=== PATIENT | female | born 1980 | race Hispanic/Latino ===

== ENCOUNTER 2016-06-19 09:32 | Emergency (ER) | payer OTHER ==
[~2016-06-19] VITALS: Ht 162.6 cm; Wt 70.9 kg
[2016-06-19 09:50] VITALS: BP 118/78; PULSE 93; RESP 16; O2SAT 99
[2016-06-19 10:56] VITALS: BP 142/95; PULSE 74; RESP 14; O2SAT 96
[2016-06-19 10:57] LABS: BASOPHILS % (AUTO) 0.4 % (0-3); MONOCYTES % (AUTO) 9.6 % (4-12); Mean Corpuscular Hemoglobin 32.4 pg (27.0-35.0); Mean Corpuscular Volume 93.9 fL (81-100); NEUTROPHILS % (AUTO) 49.5 % (40-74); Platelet Count 207 bil/L (150-400)
[2016-06-19] MEDS ORDERED: 0.9% Sodium Chloride 1,000 ML IV ONE (11:00)
[2016-06-19 11:18] LABS: Magnesium 1.9 mg/dL (1.6-2.6)
[2016-06-19] MEDS ORDERED: Ondansetron 2 mg/mL 2 mL Inj IVPUSH ONE (11:35)
[2016-06-19 11:49] LABS: APPEARANCE,URINE HAZY (CLEAR,HAZY); COLOR,URINE STRAW (YELLOW); OCCULT BLOOD,URINE NEGATIVE (NEGATIVE); PH,URINE 5.5 (5.0-8.0); UROBILINOGEN,URINE NORMAL (NORMAL)
--- NOTE | 2016-06-19 11:52 | ED.REPORT ---
HPI-Abd Pain F Under 39 Date of Service Jun 19, 2016 ED Provider: Marry Huynh MD History of Present Illness: Patient is a 36 y.o. F with past medical history of GERD, hystretomy done for heavy periods and fibroids. She presents to the ED with one day history of sudden onset of sharp right lower quadrant pain . Pain is described as sharp, constant. Both lower right quadrant painmade worse with urination and movement, Associated with painful urination and back pain that began early today. Denies fever, chils, nausea, vomiting, diarrhea, urination, hematuria, constipation. No history of STD/STI. Patient has had multiple episodes of similar pain in the past, last episode approximately one year ago, under similar circumstances without provocation. Patients stated that there has been correlation to pain with menstural cycle. Nursing Notes Stated Complaint: PAIN IN PELVIC AREA Chief Complaint: Female Abdominal Pain Allergies: Coded Allergies: codeine (Verified Adverse Reaction, Severe, Nausea, 06/19/16) ibuprofen (Verified Adverse Reaction, Severe, Nausea, 06/19/16) oxycodone (Verified Adverse Reaction, Severe, Nausea, 06/19/16) tramadol (Verified Adverse Reaction, Severe, Nausea, 06/19/16) Scheduled PRN Metoclopramide (Reglan) 5 Mg Tablet 5 MG PO QID PRN PRN For Nausea Naproxen (Naprosyn) 500 Mg Tablet 500 MG PO BID PRN PRN For Pain oxyCODONE-Acetaminophen 5-325 mg (oxyCODONE-Acetaminophen 5-325 mg) 1 Each Tablet 1 TAB PO Q6H PRN PRN For Pain General Time Seen by MD: 11:20 Chief Complaint Abdominal pain Hx Obtained From: Patient Arrived By: Walk-in Sudden in Onset?: Yes Onset Occurred: Yesterday Symptom Duration: Constant Location: : Back: Lower-adnexal region R: RLQ Quality: Sharp Radiation: : Does not radiate Severity: Current: Pain level 8 out of 10 Severity: Maximum: Pain level 8 out of 10 Recent Healthcare: No recent doctor visit Similar Sx Previous: Yes (noted in HPI) Past Medical History Past Medical History GERD Uterine Fibroids Gallstone Past Surgical History Reports: Cholecystectomy, Hysterectomy Smoking History Never Smoker Social History Alcohol Use: Denies alcohol use Drug Use: THC Ambulatory Status Independent Review of Systems Basic Review of Systems Eyes: Vision NL, No discharge ENT: Hearing NL, No pain, No nasal congestion, No pharyngeal pain Hematologic: No bleeding, No bruising Skin: No bruising, No rash, No itch Neurologic: NL mental status, No weakness, No numbness Complete sys rev & neg: except as marked. Physical Exam Initial Vital Signs Vital Signs (First) Date Time Temp Pulse Resp B/P Pulse Ox O2 Delivery O2 Flow Rate FiO2 06/19/16 09:50 37.2 93 16 118/78 99 06/19/16 10:56 Room Air Head / Eyes: Atraumatic, Normocephalic, PERRL ENT: Mucous membranes moist, Conjunctiva normal, No scleral icterus Neck: Supple, Non-tender, Full range of motion Extremities: Vascular intact, Neuro intact, No swelling, No tenderness Skin: Warm, Dry, No cyanosis Neurologic: Alert, Oriented, Nonfocal Psychiatric: Mood/affect normal, Behavior normal, Normal thought content Abdomen: No guarding, No rebound, BS normoactive, No distention Tenderness/Guarding/Rebound: Positive: Tender RLQ... (Mild) Organomegaly / Mass / Hernia: Negative: Hepatomegaly, Mass present, Pulsatile mass, Splenomegaly Trauma - General: Negative: Abrasion Trauma - Abdomen Specific: Negative: Campos's sign, Bear Link's sign Interpretation & Diagnostics Lab Results Interpretation Result Diagram: 06/19/16 1040 06/19/16 1040 Test 06/19/16 10:00 06/19/16 10:40 06/19/16 11:30 Hold Purple Top Tube Received (Received) Hold Blue Top Tube Received (Received) Hold Letha Top Tube Received (Received) White Blood Count 5.3th/mm3 (3.8-10.1) Red Blood Count 4.44mil/mm3 (3.90-5.20) Hemoglobin 14.4g/dL (12.0-15.6) Hematocrit 41.7% (35.0-46.0) Mean Corpuscular Volume 93.9fL (81-100) Mean Corpuscular Hemoglobin 32.4pg (27.0-35.0) Mean Corpuscular Hemoglobin Concent 34.5% (32.0-37.0) Red Cell Distribution Width 12.5% (12.3-15.4) Platelet Count 207bil/L (150-400) Neutrophils (%) (Auto) 49.5% (40-74) Lymphocytes (%) (Auto) 37.5% (14-46) Monocytes (%) (Auto) 9.6% (4-12) Eosinophils (%) (Auto) 3.0% (0-5) Basophils (%) (Auto) 0.4% (0-3) Sodium Level 138mEq/L (134-144) Potassium Level 4.5mEq/L (3.5-5.2) Chloride Level 104mEq/L (97-108) Carbon Dioxide Level 22mmol/L (18-29) Blood Urea Nitrogen 11mg/dL (6-20) Creatinine 0.62mg/dL (0.57-1.00) Estimat Glomerular Filtration Rate 155mL/min (>59) Glucose Level 101mg/dL (60-99) Calcium Level 8.9mg/dL (8.5-10.1) Magnesium Level 1.9mg/dL (1.6-2.6) Total Bilirubin 0.2mg/dL (0.0-1.2) Aspartate Amino Transf (AST/SGOT) 15U/L (0-50) Alanine Aminotransferase (ALT/SGPT) 12U/L (0-32) Alkaline Phosphatase 88U/L (25-150) Total Protein 6.8g/dL (6.4-8.4) Albumin 4.2g/dL (3.4-5.0) Lipase 30U/L (13-60) Hold Bear Top Tube Received (Received) Urine Color Straw (YELLOW) Urine Appearance Hazy (CLEAR,HAZY) Urine pH 5.5 (5.0-8.0) Urine Specific [place] 1.025 (1.003-1.035) Urine Protein Negativemg/dL (NEG,TRACE) Urine Glucose (UA) Negativemg/dL (NEGATIVE) Urine Ketones Negativemg/dL (NEGATIVE) Urine Occult Blood Negative (NEGATIVE) Urine Nitrite Negative (NEGATIVE) Urine Bilirubin Negative (NEGATIVE) Urine Urobilinogen Normalmg/dL (NORMAL) Urine Leukocyte Esterase Negative (NEGATIVE) Urine RBC 0-2/hpf (0-2) Urine WBC 0-5/hpf (0-5) Urine Epithelial Cells Moderate/hpf (NONE-MOD) Urine Crystals None seen (NONE SEEN) Urine Bacteria Moderate/hpf (NONE-FEW) Urine Hyaline Casts None/lpf (NONE) Urine Granular Casts None seen (NONE SEEN) Urine Waxy Casts None seen (NONE SEEN) Urine Red Blood Cell Casts None seen (NONE SEEN) Urine White Blood Cell Casts None seen (NONE SEEN) Urine Mucus Present (None Seen) Urine Trichomonas None seen (NONE SEEN) Urine Yeast None (NONE SEEN) Urinalysis Comment None Urine Culture Reflexed Indicated Re-Eval/Medical Decision Med Decision/Clinical Course Med Decision/Clinical Course: Patient is a 36 y.o. F with past medical history of GERD, hystretomy done for heavy periods and fibroids. She presents to the ED with one day history of sudden onset of sharp right lower quadrant pain and new onset right sided back pain that began this morning. DDx interstitial cystitis, interstitial nephritis, kidney stone, endometritis, pancreatitis. CBC ordered, negative for signs of acute infection CMP ordered, no sign of acute kidney injury, LFT normal Lipase ordered, normal IVF NS saline 1 L bolus ordered 30 mg Ketorlac IV given 4 mg IV Zofran ordered Patient will matt need close outpatient follow up to r/o interstitial cystitis Discharge & Departure Departure Notes During you visit to [facility] Emergency Department we obtained urine and blood work for infectious markers, hemoglobin levels, and electrolytes. All your lab values were within normal limits and your imaging showed no acute processes or abnormalities, no source of acute infection was noted in your urine sample. We will send your urine for culture to determine if there is any infection that was not caught on initial screening. Your vital signs were stable and safe for discharge. We will send you home with - Pain medications: Percocet 5-325 mg take by mouth every 6 hours for pain, Naprosyn 500 mg twice daily for pain. - Nausea medications: Reglan When taking Percocet pain medications DO NOT drive, DO NOT drink alcohol, DO NOT take extra acetaminophen (Tylenol). Do not hesitate to call emergency services or your primary care physician if you experience any of the following. - High unrelenting fevers. - Uncontrolled vomiting. - Severe hypertension. - Syncope or loss of consciousness. - Chest pain or severe shortness of breath. - Blood in urine Follow up with your primary care physician in 1-2 weeks time following your emergency department visit for medication checks and general well-being. A referral for [facility] was created. Primary Impression: Pelvic pain Disposition: Home Discharge Condition All VS Reviewed: Yes Condition: Stable Referrals: NOPCP (PCP) SUAD WELSH DO Attending Statment Patient seen and examined. Agree with above. No indication for antibiotics. Chronic intermittent pelvic pain suspicion for interstitial cystitis is entertained and discussed with patient. Outpatient follow-up has been recommended copies to: [facility] SUDA WELSH DO Jun 19, 2016 10:58 Marry Huynh MD Jun 19, 2016 12:05
[2016-06-19] MEDS ORDERED: NAPR500T PO (11:54)
[2016-06-19] MEDS ORDERED: OXYC1TAB24 PO (11:54)
[2016-06-19] MEDS ORDERED: METO5TAB78 PO (11:54)
[2016-06-19 12:11] VITALS: BP 129/69; RESP 16; O2SAT 100
== END 2016-06-19 12:20 | disposition home or self-care (01) ==
LOC: SED 09:32
DX: R10.2 Pelvic and perineal pain (principal); F12.10 Cannabis abuse, uncomplicated; Z90.710 Acquired absence of both cervix and uterus; Z90.49 Acquired absence of other specified parts of digestive tract; Z87.19 Personal history of other diseases of the digestive system; Z88.5 Allergy status to narcotic agent; Z88.6 Allergy status to analgesic agent
CPT/HCPCS: 36415; 80053; 81000; 83690; 83735; 85025; 87086; 87088; 96361; 96372; 96374; 99285; J2405; J7030